=== PATIENT | male | born 1980 | race Caucasian/White ===

== ENCOUNTER 2020-11-21 18:50 | Emergency (ER) | payer OTHER ==
[~2020-11-21] VITALS: Ht 185.4 cm; Wt 113.4 kg
--- OUTSIDE RECORDS SUMMARY | 2020-11-21 18:52 | XMS ---
PreManage Notification: LUCINDA [employer] Security [employer]ender Events No recent Security Events currently on file CRITERIA MET - [facility] - 2 Visits in 30 Days CARE PROVIDERS There are no care providers on record at this time. Gege has no Care Guidelines for this patient. [facility] MO.) [facility] NOTE: Visits indicate total known visits. ED/C VISIT TRACKING (12 MO.) [facility]2020 18[facility] COMPLAINT: - M[facility] LEG WEAKNESS [facility] DIAGNOSES: - Unspecified injury of left wrist, hand and finger(s), initial encounter - finger pain - Finger Injury INPATIENT VISIT TRACKING (12 MO.) No inpatient visits to display in this time frame [email or web address]
[2020-11-21] MEDS ORDERED: DICLOFENAC SODI75 MG PO (20:57)
== END 2020-11-21 21:22 | disposition home or self-care (01) ==
LOC: ED 18:50
DX: T14.8XXA Other injury of unspecified body region, initial encounter (principal); V43.52XA Car driver injured in collision with other type car in traffic accident, initial encounter; F17.200 Nicotine dependence, unspecified, uncomplicated
CPT/HCPCS: 70450; 72125; 72131; 99284-25